=== PATIENT | female | born 1980 | race Caucasian/White ===

== ENCOUNTER → 2016-12-07 | Outpatient (CLI) | payer BC ==
[~2016-12-07] MED LIST: FLV1; PRENTAB26 PO
== END | disposition home or self-care (01) ==
LOC: C.PAPS 12:47
PROVIDERS: ATTEND Obstetrics & Gynecology
DX: Z01.419 Encounter for gynecological examination (general) (routine) without abnormal findings (principal)

== ENCOUNTER → 2017-04-26 | Outpatient (CLI) | payer BC ==
[2017-04-26 12:58] LABS: BASO % 0.6 %; BASO ABS # 0.04 K/uL (0-0.2); COMPLETE YES; EOS % 8.8 %; HEMATOCRIT 45.2 % (37-47); IG% 0.1 %; LYMPH % 38.5 %; LYMPH ABS # 2.67 K/uL (1.2-3.4); MEAN CELL VOLUME 87.8 fL (80-100); MEAN CORPUSCULAR HEMOGLOBIN 29.3 pg (25-34); MEAN CORPUSCULAR HGB CONC 33.4 g/dl (32-36); MEAN PLATELET VOLUME 10.7 fL (7.4-10.4); MONO % 7.9 %; NEUT % 44.1 %; PLATELET COUNT 384 K/uL (130-400); RED BLOOD COUNT 5.15 M/uL (4.2-5.4); WHITE BLOOD COUNT 6.94 K/uL (4.8-10.8)
[2017-04-26 13:07] LABS: BLOOD UREA NITROGEN 9 mg/dl (7-18); CALCIUM 8.5 mg/dl (8.5-10.1); CARBON DIOXIDE 23 mmol/L (21-32); CHLORIDE 109 mmol/L (98-107); GLUCOSE 93 mg/dl (70-99); SODIUM 137 mmol/L (136-145)
[2017-04-26 13:22] LABS: BUN/CREATININE RATIO 14.8 (10-20); CREATININE 0.63 mg/dl (0.60-1.20)
--- NOTE | 2017-05-03 12:38 | CODING QUERY MEDICAL NECESSITY ---
SUPPORTING DIAGNOSIS NEEDED Cher PELAEZ, A supporting diagnosis is required for the test/procedure performed on this patient in order for us to be reimbursed by the patient's insurance. Please provide a supporting diagnosis for the following test/procedure listed below next to the test name along with your signature. *If there is no additional diagnosis for this patient that would support the following test/procedure please document that below next to the test/procedure. Test(s)/Procedure(s) that require a supporting diagnosis: * ([id number]) VITAMIN D ASSAY DIAGNOSIS: DATE OF SERVICE: 04/26/17 Provider Signature: Date: Thank you Guy [facility] Information Management Once completed, please kindly fax back to [phone] For questions please call [phone]
== END | disposition home or self-care (01) ==
LOC: C.LABPVFM 07:40
PROVIDERS: ATTEND Nurse Practitioner Family
DX: R53.83 Other fatigue (principal); E55.9 Vitamin D deficiency, unspecified

== ENCOUNTER → 2017-06-28 | Outpatient (CLI) | payer OTHER | END | disposition home or self-care (01) | LOC: C.LABPVFM 08:17 | PROVIDERS: ATTEND Nurse Practitioner Family | DX: E11.9 Type 2 diabetes mellitus without complications (principal) ==

== ENCOUNTER → 2017-12-24 | Outpatient (CLI) | payer OTHER ==
[~2017-12-24] MED LIST changes: +BCPILLS PO; +CHOL2000 PO; -FLV1; +METF-384 PO; +MTR600X PO; +OXYC-57 PO; +PEDICHW PO; -PRENTAB26 PO; +SPRN100 PO
[2017-12-24 09:43] LABS: BLOOD UREA NITROGEN 11 mg/dl (7-18); CALCIUM 8.5 mg/dl (8.5-10.1); CARBON DIOXIDE 28 mmol/L (21-32); CREATININE 0.68 mg/dl (0.60-1.20); GLUCOSE 90 mg/dl (70-99); POTASSIUM 4.1 mmol/L (3.5-5.1); SODIUM 139 mmol/L (136-145)
[2017-12-24 09:57] LABS: BASO % 0.3 %; BASO ABS # 0.02 K/uL (0-0.2); EOS % 6.3 %; EOS ABS # 0.46 K/uL (0-0.5); HEMATOCRIT 42.5 % (37-47); HEMOGLOBIN 14.2 g/dL (12.0-16.0); IG# 0.02 K/uL (0.00-0.02); LYMPH % 33.4 %; LYMPH ABS # 2.44 K/uL (1.2-3.4); MEAN CELL VOLUME 88.7 fL (80-100); MEAN CORPUSCULAR HEMOGLOBIN 29.6 pg (25-34); MEAN CORPUSCULAR HGB CONC 33.4 g/dl (32-36); MEAN PLATELET VOLUME 10.6 fL (7.4-10.4); MONO % 7.9 %; MONO ABS # 0.58 K/uL (0.11-0.59); NEUT % 51.8 %; NEUT ABS # 3.78 K/uL (1.4-6.5); PLATELET COUNT 375 K/uL (130-400); RED CELL DISTRIBUTION WIDTH CV 12.8 % (11.5-14.5); RED CELL DISTRIBUTION WIDTH SD 41.2 fL (36.4-46.3)
== END | disposition home or self-care (01) ==
LOC: C.LAB1850 07:31
PROVIDERS: ATTEND Obstetrics & Gynecology
DX: Z01.818 Encounter for other preprocedural examination (principal)

== ENCOUNTER → 2017-12-27 | Day surgery (SDC) | payer OTHER ==
[2017-12-16 13:52] VITALS: BMI 33.0
[~2017-12-27] VITALS: Ht 160 cm; Wt 87.0 kg
[~2017-12-27] MED LIST changes: +ATROPINE SULFATE 0.1 MG/ML 5ML SYR IV PRN; +BUPIVACAINE 0.5 % 5 MG/1 ML PF 10ML VIAL ONE; +DEXAMETHASONE SOD INJ 4 MG/ML VIAL ONE; +FENTANYL CITRATE INJ 50 MCG/1 ML 2 ML VIAL ONE; +GLYCOPYRROLATE INJ 0.2 MG/ML VIAL ONE; +IBUPROFEN 600 MG TAB PO PRN; +KETOROLAC TROMETHAMINE 30 MG/ML VIAL IV. PRN; +KETOROLAC TROMETHAMINE 30 MG/ML VIAL ONE; +LACTATED RINGER'S 1000ML 1,000 ML IV SCH; +LIDOCAINE HCL 2% 2 ML VIAL (20MG/ML) ONE; +MIDAZOLAM HCL 1 MG/ML 2ML VIAL ONE; +NEOSTIGMINE METHYLSULFATE 5 MG/5 ML SYR ONE; +ONDANSETRON INJ 2 MG/ML 2 ML VIAL IV PRN; +ONDANSETRON INJ 2 MG/ML 2 ML VIAL ONE; +OXYCODONE/ACETAMINOPHEN 5-325 TAB PO PRN; +PROMETHAZINE HCL INJ 25 MG in SODIUM CHLORIDE 0.9% 50ML 50 ML IV PRN; +PROPOFOL IV EMULSION 10 MG/ML 20 ML VIAL ONE; +SODIUM CHLORIDE 0.9% 1000ML 1,000 ML IV SCH
--- NOTE | 2017-12-27 08:33 | History & Physical Bridge Note ---
H&P Re-Evaluation Bridge Note: I have examined the patient, reviewed the History & Physical and in the interval since the performance of the History & Physical I have noted the following changes of clinical significance: No changes noted
[2017-12-27 08:47] VITALS: BP 132/83; PULSE 85; TEMP 36.7; O2SAT 98; Ht 160 cm; Wt 87.0 kg
--- NOTE | 2017-12-27 10:50 | [facility] Post Operative Brief Note ---
Immediate Operative Summary Operative Date Dec 27, 2017. Pre-Operative Diagnosis Right ovarian cyst Request permanent sterilization Post-Operative Diagnosis Right ovarian cyst Request permanent sterilization Procedure(s) Performed Robotic assisted laparoscopic right salpingo-oopherectomy and left salpingectomy Surgeon Dr. Thai Blank MD Senior Peoplesoft Developer Surgeon(s) None Estimated Blood Loss 5ml Findings Consistent with Post-Op Diagnosis Specimens A. Right adnexa B. Left fallopian tube Drains None Anesthesia Type General Complication(s) none Disposition Accompanied Pt To Recover: no Disposition: Recovery Room / PACU
--- NOTE | 2017-12-27 10:51 | Discharge Instructions ---
Discharge Instructions Date of Service Dec 27, 2017. Admission Reason for Admission: Right Ovarian Cyst, Desire For Sterilization Discharge Discharge Diagnosis / Problem: right ovarian dermoid Discharge Goals Goal(s): Routine recovery after surgery Activity Recommendations Activity Limitations: per Instructions/Follow-up section . Instructions / Follow-Up Instructions / Follow-Up ACTIVITY RECOMMENDATIONS: * Rest the first 2-3 days. You should be back to your normal activity levels by day 3. * No heavy lifting for 2 weeks. * No intercourse, tampons or douching for 1-2 weeks. * You may shower the next day. * Do not drive anytime that you are taking narcotic pain medicines. RETURN TO SCHOOL/WORK: * May return to school or work after 2-3 days. DIET: Nausea may occur in the immediate post-operative period. If so, take clear liquids such as tea, bouillon, apple juice until all nausea has subsided, then resume usual diet. MEDICATIONS: Resume previous medications unless instructed otherwise by your surgeon. Ibuprofen 200mg 2-3 tablets every 4-6 hours as needed -- OR -- Aleve 2 tablets every 8-12 hours as needed for post-operative discomfort Medications are over the counter. Tylenol may be used if above medications are contraindicated or not preferred. Medication should be taken with food or milk. Do not take on an empty stomach. SPECIAL CARE INSTRUCTIONS: * Check temperature twice daily for one week. report any elevation over 101 degrees. * You may experience some vagina spotting and/or bleeding. This is normal for 1 -2 weeks and should not be heavier than a normal period. If it is unusual in amount, call your physician. * Post-operative discomfort may consist of a sore throat, a "bloated" feeling and pain in the shoulders. these are normal symptoms, which usually only last for 2-3 days. * Remove band-aids tomorrow and shower. There is no need to replace band-aids unless there is drainage or discomfort. FOLLOW UP VISIT: Call your doctor's office for a post-operative 2 week visit if not already scheduled. Current Hospital Diet Patient's current hospital diet: Discharge Diet Recommended Diet: Regular Diet Procedures Procedures Performed: Robotic assisted laparoscopic right salpingo-oopherectomy and left salpingectomy Pending Studies Studies pending at discharge: no Medical Emergencies . Who to Call and When: Medical Emergencies: If at any time you feel your situation is an emergency, please call 911 immediately. . Non-Emergent Contact Non-Emergency issues call your: Residential Mental Health Worker . . "Provider Documentation" section prepared by Dexter Blank. .
[2017-12-27] MEDS: FENTANYL CITRATE INJ 50 MCG/1 ML 2 ML VIAL IV PRN ×3 (11:36→11:43)
[2017-12-27 12:10] VITALS: BP 133/72; PULSE 81; TEMP 37.2; O2SAT 98
[2017-12-27 12:40] VITALS: BP 136/78; PULSE 85; O2SAT 99
[2017-12-27 13:10] VITALS: BP 144/74; PULSE 94; TEMP 37; O2SAT 98
--- NOTE | 2017-12-27 14:51 | OPERATIVE REPORT ---
DATE OF OPERATION: 12/27/2017 PREOPERATIVE DIAGNOSES: Right ovarian cyst and patient requests permanent sterilization. POSTOPERATIVE DIAGNOSES: Same. PROCEDURE: Robotically assisted laparoscopic right salpingo-oophorectomy and left salpingectomy. Note: The left ovary was conserved. SURGEON: Dexter Blank MD TOOL GRINDING TECHNICIAN: None. ESTIMATED BLOOD LOSS: 5 mL. FINDINGS: Consistent with postoperative diagnoses. SPECIMENS: Right adnexa. Left fallopian tube. DRAINS: None. ANESTHETIC: General. COMPLICATIONS: None. DISPOSITION: Recovery. DESCRIPTION OF PROCEDURE: Patient was given a general anesthetic, prepped and draped in dorsal lithotomy position in [facility]. Bladder drained with a Capone catheter and acorn manipulating device attached to the cervix. Gloves changed and a subumbilical incision vertical made with scalpel. Using Houston technique, we dissected through the subcutaneous fat to the fascia splitting the rectus muscles and entering the peritoneal cavity without difficulty. Blunt-tipped Houston trocar placed, balloon inflated to stabilize the port. CO2 gas insufflated. FINDINGS: Upper abdomen normal, no sign of visceral organ injury. Deep Trendelenburg position obtained. We visualized the right dermoid cyst. It appeared benign and highly suspicious for a dermoid. Left ovary appeared normal as did the fallopian tubes and the pelvis. Two robotic ports were placed, 1 on the left and 1 on the right under direct visualization. Robot was docked. Arm #1 was monopolar ezequiel, arm #2 was bipolar [place]. Procedure was begun first by finding the ureter on the right side and then isolating the ovarian blood supply proximal to the ovary taking note of the right ureter. We isolated the blood supply and then coagulated this with the bipolar [place], cut with monopolar ezequiel. We then carefully removed the ovary from its sidewall attachments and then coagulated and cut the uteroovarian blood supply. Adnexa were then placed in the anterior cul-de-sac for safekeeping. Hemostasis was excellent. We had visualized the ureter on the right side. It was peristalsing normally on after removal of the ovary. Left fallopian tube was identified and removed primarily with the monopolar electrosurgery device freeing it from its attachments and then coagulating the distal end of the adnexa with the bipolar [place]. This was then cut, and this was also placed in the anterior cul-de-sac. Robot was undocked after instruments removed. We placed a 5 mm scope through one of the robotic ports and a 10 mm bag through the umbilical port. Specimens were both placed in the bag and then removed through the umbilicus intact within the bag. After visualization of the sites, hemostasis was excellent even with low CO2 test. Gas was allowed to escape. Ports were removed. Incisions injected with 0.5% Marcaine. Fascia closed with 0 Vicryl in the umbilical incision and then subcutaneous fat as well, 4-0 subcuticular Monocryl closures. Dermabond applied, Capone catheter removed, and instruments in the cervix and vagina removed. Sponge and instrument counts correct. I attest to the content of the Intraoperative Record and any orders documented therein. Any exception s are noted below.
--- NOTE | 2017-12-27 15:26 | Anesthesiology Progress Note ---
Anesthesia Post Op Note Date & Time Dec 27, 2017 at 15:25 Vital Signs Pain Intensity: 4 Vital Signs Past 12 Hours Date Time Temp Pulse Resp B/P (MAP) Pulse Ox O2 Delivery O2 Flow Rate FiO2 12/27/17 13:10 37 94 18 144/74 98 Room Air 12/27/17 12:40 85 18 136/78 99 Room Air 12/27/17 12:10 37.2 81 18 133/72 98 Room Air 12/27/17 12:00 129/89 12/27/17 11:58 36.8 75 16 129/89 (104) 98 Room Air 12/27/17 11:57 85 20 98 12/27/17 11:57 89 20 12/27/17 11:55 131/84 12/27/17 11:52 82 19 12/27/17 11:52 85 19 98 12/27/17 11:50 127/78 12/27/17 11:47 89 20 99 12/27/17 11:47 88 20 12/27/17 11:45 134/76 12/27/17 11:42 86 18 98 12/27/17 11:42 85 18 12/27/17 11:40 134/76 12/27/17 11:37 78 21 12/27/17 11:37 77 21 99 12/27/17 11:36 83 16 97 12/27/17 11:36 82 16 12/27/17 11:35 127/84 12/27/17 11:31 78 20 98 12/27/17 11:31 79 20 12/27/17 11:30 120/91 12/27/17 11:26 80 18 12/27/17 11:26 79 18 126/68 100 12/27/17 11:21 78 14 100 12/27/17 11:21 78 14 12/27/17 11:20 142/74 12/27/17 11:19 74 15 99 12/27/17 11:19 74 15 12/27/17 11:15 128/82 12/27/17 11:14 74 21 12/27/17 11:14 74 21 100 12/27/17 11:10 125/81 12/27/17 11:09 84 15 12/27/17 11:09 83 15 100 12/27/17 11:05 141/85 8/24/18 11:04 95 17 12/27/17 11:04 95 17 100 12/27/17 11:00 36.7 100 16 135/92 (100) 99 Oxymask 10 12/27/17 11:00 144/85 12/27/17 10:59 106 12/27/17 10:59 106 135/92 100 12/27/17 08:47 36.7 85 16 132/83 (99) 98 Room Air Notes Mental Status: alert / awake / arousable, participated in evaluation Pt Amnestic to Procedure: Yes Nausea / Vomiting: adequately controlled Pain: adequately controlled Airway Patency, RR, SpO2: stable & adequate BP & HR: stable & adequate Hydration State: stable & adequate Anesthetic Complications: no major complications apparent
== END | disposition home or self-care (01) ==
LOC: C.ACU 08:02
PROVIDERS: ATTEND Obstetrics & Gynecology
DX: N83.201 Unspecified ovarian cyst, right side (principal); Z30.2 Encounter for sterilization
CPT/HCPCS: 58661; S2900